=== PATIENT | male | born 1955 | race Caucasian/White ===

== ENCOUNTER → 2016-10-26 | Outpatient (REF) | payer BC ==
[~2016-10-26] MED LIST: MULT1TAB11 PO; OMEP40CA2 PO; VITACAP31; [UNRECOGNIZED DRUG - REMARK]
== END ==
LOC: M LAB REF 13:59
PROVIDERS: ATTEND Internal Medicine
DX: Z01.89 Encounter for other specified special examinations (principal)

== ENCOUNTER → 2017-05-06 | Outpatient (REF) | payer BC | LOC: M LAB REF 16:45 | DX: J34.89 Other specified disorders of nose and nasal sinuses (principal) | CPT/HCPCS: 87077; 87186 ==

== ENCOUNTER → 2017-06-14 | Outpatient (CLI) | payer BC | LOC: M RAD 16:01 | DX: J33.9 Nasal polyp, unspecified (principal) | CPT/HCPCS: 70486 ==

== ENCOUNTER → 2017-07-21 | Outpatient (CLI) | payer BC | LOC: M EKG 14:19 | DX: Z01.810 Encounter for preprocedural cardiovascular examination (principal) ==

== ENCOUNTER 2017-07-27 08:57 | Day surgery (SDC) | payer BC ==
[2017-07-27] MEDS: LR 1,000 ML IV ×4 (09:15→13:03)
[2017-07-27] MEDS ORDERED: SCOPOLAMINE 1MG TRANSDERMAL PATCH As Ordered ×2 (09:44)
[2017-07-27] MEDS: SCOPOLAMINE 1MG TRANSDERMAL PATCH TOP ×2 (09:52)
[2017-07-27] MEDS ORDERED: fentaNYL 100 MCG/2 ML INJECTION (J3010) As Ordered ×4 (10:11→12:24)
[2017-07-27] MEDS ORDERED: MIDAZOLAM INJ 2 MG/2 ML VIAL (J2250) As Ordered ×2 (10:12)
[2017-07-27] MEDS ORDERED: LIDOCAINE 2% INJ 100 MG/5 ML SDV (FOR ANES.) As Ordered ×2 (10:13)
[2017-07-27] MEDS ORDERED: PROPOFOL 200 MG/20 ML VIAL As Ordered ×4 (10:13→10:50)
[2017-07-27] MEDS ORDERED: ROCURONIUM BROMIDE 50 MG/5 ML VIAL As Ordered ×2 (10:14)
[2017-07-27] MEDS ORDERED: dexameTHASONE 4 MG/ML 1ML VIAL (J1100) As Ordered ×4 (10:44)
[2017-07-27] MEDS ORDERED: REMIFENTANIL 1MG 3ML VIAL As Ordered ×2 (10:49)
[2017-07-27] MEDS: dexameTHASONE 4 MG/ML 1ML VIAL (J1100) IV ×2 (11:00)
[2017-07-27] MEDS ORDERED: ONDANSETRON 4MG/2ML VIAL (J2405) As Ordered ×2 (11:10)
[2017-07-27] MEDS: METHYLENE BLUE 0.5% (5MG/ML) 10 ML AMP (PROVAYBLUE)(Q9968 PER 1MG) As Ordered ×2 (11:32)
[2017-07-27] MEDS: EPINEPHrine 1MG/ML INJ 30ML MD-VIAL As Ordered ×4 (11:32→12:45)
[2017-07-27] MEDS ORDERED: GLYCOPYRROLATE INJ 0.2 MG/ML 2 ML VIAL As Ordered ×2 (12:25)
[2017-07-27] MEDS ORDERED: NEOSTIGMINE 10 MG/10 ML VIAL (J2710) As Ordered ×2 (12:25)
[2017-07-27] MEDS: LIDOCAINE W/EPINEPHRINE 1% 20ML VIAL As Ordered ×2 (12:30)
[2017-07-27] MEDS ORDERED: LABETALOL HCL 100 MG/20 ML VIAL As Ordered ×4 (12:43→13:20)
[2017-07-27] MEDS ORDERED: PERCOCET 5MG/325MG TAB As Ordered ×2 (13:11)
[2017-07-27] MEDS: PERCOCET 5MG/325MG TAB PO ×4 (13:19→14:08)
[2017-07-27] MEDS: LABETALOL HCL 100 MG/20 ML VIAL IV ×8 (13:27→13:45)
[2017-07-27] MEDS ORDERED: HYDROmorphone HCL 1 MG/ML SYRINGE (J1170) IV ×2 (13:30)
[2017-07-27] MEDS ORDERED: ONDANSETRON 4MG/2ML VIAL (J2405) IV ×2 (13:30)
[2017-07-27] MEDS: fentaNYL 100 MCG/2 ML INJECTION (J3010) IV ×4 (13:36→13:42)
== END 2017-07-27 15:57 | disposition home or self-care (01) ==
LOC: M SDC 08:57
DX: J33.9 Nasal polyp, unspecified (principal); J32.9 Chronic sinusitis, unspecified; E78.00 Pure hypercholesterolemia, unspecified; I10 Essential (primary) hypertension; Z79.899 Other long term (current) drug therapy; Z87.891 Personal history of nicotine dependence
CPT/HCPCS: 31267

== ENCOUNTER → 2023-12-10 | Outpatient (REF) | payer MEDICARE ==
[~2023-12-10] MED LIST changes: +MONT-5 PO; -OMEP40CA2 PO; +OMEP40CA4 PO
[2023-12-10 13:23] LABS: PERCENT SATURATION 6.4 % (19.7-50.0)
== END ==
LOC: M LAB REF 12:32
PROVIDERS: ATTEND Internal Medicine
DX: D64.9 Anemia, unspecified (principal)

== ENCOUNTER → 2024-03-20 | Outpatient (REF) | payer MEDICARE | LOC: M LAB REF 12:36 | PROVIDERS: ATTEND Internal Medicine | DX: D64.9 Anemia, unspecified (principal) ==